=== PATIENT | male | born 1990 | race Caucasian/White ===

== ENCOUNTER 2017-09-03 22:21 | Emergency (ER) | payer OTHER ==
[2017-09-03 22:34] VITALS: BP 146/94; TEMP 97.6; BMI 24.7
[2017-09-03] MEDS ORDERED: BOOSTRIX IM ONE (23:32)
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
== END 2017-09-03 23:46 | disposition home or self-care (01) ==
LOC: ED 22:21
DX: S01.512A Laceration without foreign body of oral cavity, initial encounter (principal); Y09 Assault by unspecified means; Y92.149 Unspecified place in prison as the place of occurrence of the external cause; F17.210 Nicotine dependence, cigarettes, uncomplicated
CPT/HCPCS: 90471; 90715; 99283